=== PATIENT | female | born 1985 | race Caucasian/White ===

== ENCOUNTER 2016-04-29 20:50 | Emergency (ER) | payer OTHER ==
[~2016-04-29] VITALS: Ht 160 cm; Wt 68.0 kg
[2016-04-29 21:14] VITALS: BP 109/63
[2016-04-29] MEDS ORDERED: PROAIR RESPICL90 MCG IH (21:57)
[2016-04-29] MEDS ORDERED: PRED50TA PO (21:57)
[2016-04-29] MEDS ORDERED: AZIT250T PO (21:57)
[2016-04-29] MEDS ORDERED: BENZ100C PO (21:57)
--- NOTE | 2016-04-29 21:58 | PHYS DOC ---
Past Medical History Past Medical History: No Pertinent History Past Surgical History: Cholecystectomy, , Other Additional Past Surgical Histo: TIBIA SURGERY AND GRAFT Alcohol Use: None Drug Use: None Adult General Chief Complaint Chief Complaint: COUGH HPI HPI Patient is a 31 year old female who presents with a productive cough for 1 week. Patient states this symptoms are consistent with the last time she had walking pneumonia and bronchitis. Patient denies any fever but states she has chills. Denies any history of smoking. Review of Systems Review of Systems Constitutional: chills [] Eyes: Denies change in visual acuity, redness, or eye pain [] HENT: Denies nasal congestion or sore throat [] Respiratory: cough Cardiovascular: No additional information not addressed in HPI [] GI: Denies abdominal pain, nausea, vomiting, bloody stools or diarrhea [] : Denies dysuria or hematuria [] Musculoskeletal: Denies back pain or joint pain [] Integument: Denies rash or skin lesions [] Neurologic: Denies headache, focal weakness or sensory changes [] Endocrine: Denies polyuria or polydipsia [] Allergies Allergies Allergies Coded Allergies Type Severity Reaction Last Updated Verified Penicillins Allergy Unknown 04/30/14 Yes Physical Exam Physical Exam Constitutional: Well developed, well nourished, no acute distress, non-toxic appearance. [] HENT: Normocephalic, atraumatic, bilateral external ears normal, oropharynx moist, no oral exudates, nose normal. [] Eyes: PERRLA, EOMI, conjunctiva normal, no discharge. [] Neck: Normal range of motion, no tenderness, supple, no stridor. [] Cardiovascular:Heart rate regular rhythm, no murmur [] Lungs & Thorax: Bilateral breath sounds clear to auscultation [] Abdomen: Bowel sounds normal, soft, no tenderness, no masses, no pulsatile masses. [] Skin: Warm, dry, no erythema, no rash. [] Back: No tenderness, no CVA tenderness. [] Extremities: No tenderness, no cyanosis, no clubbing, ROM intact, no edema. [] Neurologic: Alert and oriented X 3, normal motor function, normal sensory function, no focal deficits noted. [] Psychologic: Affect normal, judgement normal, mood normal. [] Current Patient Data Vital Signs Vital Signs Date Time Temp Pulse Resp B/P Pulse Ox O2 Delivery O2 Flow Rate FiO2 04/29/16 21:14 98.4 81 16 100 Room Air 98.4 EKG EKG [] Radiology/Procedures Radiology/Procedures [] Course & Med Decision Making Course & Med Decision Making Pertinent Labs and Imaging studies reviewed. (See chart for details) Patient is in the ED with symptoms consistent of bronchitis. Discharged with albuterol inhaler prednisone for 5 days Zurdo Sims and Candida. Instructed to follow-up with PCP in one week. Provided return precautions and discharged in stable condition. Dragon Disclaimer Dragon Disclaimer This electronic medical record was generated, in whole or in part, using a voice recognition dictation system. Departure Departure Impression: Primary Impression: Acute bronchitis Disposition: HOME, SELF-CARE Condition: STABLE Referrals: NO PCP (PCP) Follow-up with your doctor in one week Patient Instructions: Acute Bronchitis Additional Instructions: You were seen for acute bronchitis, take the prescribed medicines as ordered, complete your antibiotics. Follow-up with your doctor in one week, come back to the ED if symptoms worsen. Scripts Azithromycin (Zithromax)250 Mg Tablet1 Pkg PO UD #1 PKG Prov:RAFAEL CAMPBELL APRN 04/29/16 Benzonatate (Tessalon Perle)100 Mg Capsule1 Cap PO TID #30 CAP Prov:RAFAEL CAMPBELL APRN 04/29/16 Prednisone 50 Mg Tablet1 Tab PO DAILY #5 TAB Prov:RAFAEL CAMPBELL APRN 04/29/16 Albuterol Sulfate (Proair Respiclick)90 Mcg Aer.pow.ba1 Puff IH PRN Q6HRS PRN SHORTNESS OF BREATH #1 INHALER Prov:RAFAEL CAMPBELL APRN 04/29/16 Problem Qualifiers Primary Impression: Acute bronchitis Bronchitis organism: unspecified organism Qualified Code: J20.9 - Acute bronchitis, unspecified RAFAEL CAMPBELL APRN Apr 29, 2016 21:57
== END 2016-04-29 22:10 | disposition home or self-care (01) ==
LOC: ER 20:52
DX: J20.9 Acute bronchitis, unspecified (principal)
CPT/HCPCS: 99283

== ENCOUNTER 2016-05-03 20:16 | Emergency (ER) | payer OTHER ==
[~2016-05-03] VITALS: Ht 160 cm; Wt 68.0 kg
[~2016-05-03 20:16] MED LIST: AZIT250T PO; BENZ100C PO; PRED50TA PO; PROAIR RESPICL90 MCG IH
[2016-05-03 20:20] VITALS: BP 112/76
[2016-05-03] MEDS ORDERED: IBUP-1007 PO (22:33)
--- NOTE | 2016-05-03 22:33 | PHYS DOC ---
Past Medical History Past Medical History: No Pertinent History Past Surgical History: Cholecystectomy, , Other Additional Past Surgical Histo: TIBIA SURGERY AND GRAFT Additional Information: Nonsmoker Alcohol Use: None Drug Use: None Adult General Chief Complaint Chief Complaint: FOOT INJURY PAIN HPI HPI Patient is a 31 year old female who presents with left foot pain starting 1830 tonight. The patient twisted her foot while getting up from a chair. She has been ambulatory since the injury. She reports decreased dorsiflexion with normal plantar flexion of the foot. She does not have a PCP. Review of Systems Review of Systems Constitutional: Denies fever or chills. [] Musculoskeletal: Denies back pain or joint pain. Reports left foot pain. Integument: Denies rash or skin lesions. [] Neurologic: Denies focal weakness or sensory changes. [] Allergies Allergies Allergies Coded Allergies Type Severity Reaction Last Updated Verified Penicillins Allergy Unknown 04/30/14 Yes Physical Exam Physical Exam Constitutional: Well developed, well nourished, no acute distress, non-toxic appearance. [] HENT: Normocephalic, atraumatic, oropharynx moist. [] Eyes: PERRLA, EOMI, conjunctiva normal, no discharge. [] Skin: Warm, dry, no erythema, no rash. There is no laceration, abrasion, ecchymosis, or other external signs of trauma. Extremities: Left midfoot tenderness, ROM intact, no edema. 2+ pedal pulses. Less than 2 second capillary refill. Light touch sensation intact distally. Neurologic: Alert and oriented X 3, normal motor function, normal sensory function, no focal deficits noted. [] Psychologic: Affect normal, judgement normal, mood normal. [] Current Patient Data Vital Signs Vital Signs Date Time Temp Pulse Resp B/P Pulse Ox O2 Delivery O2 Flow Rate FiO2 05/03/16 20:20 97.9 70 20 98 Room Air 97.9 EKG EKG [] Radiology/Procedures Radiology/Procedures Three-view x-ray of the left foot reviewed and interpreted by myself with Dr. Young. There are no acute fractures or dislocations. Course & Med Decision Making Course & Med Decision Making Pertinent Labs and Imaging studies reviewed. (See chart for details) Patient was provided with an Blaine wrap and a postop shoe prior discharge. She is provided with a prescription for ibuprofen 600 mg. She is given contact information for orthopedics for follow-up. Return precautions were discussed. She verbalizes understanding and agrees with plan. Dragon Disclaimer Dragon Disclaimer This electronic medical record was generated, in whole or in part, using a voice recognition dictation system. Departure Departure Impression: Primary Impression: Foot sprain Disposition: HOME, SELF-CARE Condition: STABLE Referrals: PATTI CHARLTON MD Patient Instructions: Foot Sprain-Brief Additional Instructions: Your x-ray did not show any broken bones or dislocations. Please wear the provided Blaine wrap and walking shoe to help with pain and swelling. Please take the provided medication as directed. Please follow-up with the orthopedic doctor listed below if your pain continues. Return to the emergency department if you have any new or concerning symptoms. Scripts Ibuprofen 600 Mg [id number] Mg PO PRN Q6HRS PRN INFLAMMATION #20 TAB Prov:JIMY SHAVER 05/03/16 Problem Qualifiers Primary Impression: Foot sprain Encounter type: initial encounter Laterality: left Qualified Code: S93.602A - Unspecified sprain of left foot, initial encounter JIMY SHAVER May 03, 2016 22:33
--- NOTE | 2016-05-04 08:11 | RAD ---
Indication: Twisted foot, pain dorsally. Technique: 3 views of the left foot are submitted for review. No comparison is available. Findings: There is no fracture or dislocation. There is no soft tissue swelling. Impression: Negative for fracture.
== END 2016-05-03 22:40 | disposition home or self-care (01) ==
LOC: ER 20:16
DX: S93.602A Unspecified sprain of left foot, initial encounter (principal); Z88.0 Allergy status to penicillin; X50.9XXA Other and unspecified overexertion or strenuous movements or postures, initial encounter; Y93.89 Activity, other specified; Y99.8 Other external cause status; Y92.89 Other specified places as the place of occurrence of the external cause
CPT/HCPCS: 73630; 99285-25

== ENCOUNTER 2017-02-05 14:35 | Emergency (ER) | payer OTHER ==
[~2017-02-05] VITALS: Ht 160 cm; Wt 68.0 kg
[~2017-02-05 14:35] MED LIST changes: +CLIN150C14 PO; +IBUP-1007 PO; +TRAM-48 PO
[2017-02-05 15:51] VITALS: BP 105/55
--- NOTE | 2017-02-05 15:52 | PHYS DOC ---
Past Medical History Past Medical History: No Pertinent History Past Surgical History: Cholecystectomy, , Other Additional Past Surgical Histo: TIBIA SURGERY AND GRAFT Alcohol Use: None Drug Use: None Adult General Chief Complaint Chief Complaint: NAUSEA/VOMITING/DIARRHA HPI HPI Patient is a 31 year old female who presents with nausea vomiting and diarrhea that began yesterday after eating at [email or web address]. Patient is in the ED with her daughter with the same complaint. Patient denies any fever or hematemesis. Denies any chance she is . She is also complaining of abdominal cramping. Review of Systems Review of Systems Constitutional: Denies fever or chills [] Eyes: Denies change in visual acuity, redness, or eye pain [] HENT: Denies nasal congestion or sore throat [] Respiratory: Denies cough or shortness of breath [] Cardiovascular: No additional information not addressed in HPI [] GI: Reports abdominal cramping with nausea vomiting and diarrhea : Denies dysuria or hematuria [] Musculoskeletal: Denies back pain or joint pain [] Integument: Denies rash or skin lesions [] Neurologic: Denies headache, focal weakness or sensory changes [] All other systems were reviewed and found to be within normal limits, except as documented in this note. Current Medications Current Medications Current Medications Medications (Trade) Dose Ordered Sig/Rafita Start Time Stop Time Status Last Admin Dose Admin Dicyclomine HCl (Bentyl) 20 mg 1X ONCE 02/05/17 16:00 02/05/17 16:01 UNV Ondansetron HCl (Zofran Odt) 4 mg 1X ONCE 02/05/17 16:00 02/05/17 16:01 Allergies Allergies Allergies Coded Allergies Type Severity Reaction Last Updated Verified Penicillins Allergy Intermediate 02/05/17 Yes Physical Exam Physical Exam Constitutional: Well developed, well nourished, no acute distress, non-toxic appearance. [] HENT: Normocephalic, atraumatic, bilateral external ears normal, oropharynx moist, no oral exudates, nose normal. [] Eyes: PERRLA, EOMI, conjunctiva normal, no discharge. [] Neck: Normal range of motion, no tenderness, supple, no stridor. [] Cardiovascular:Heart rate regular rhythm, no murmur [] Lungs & Thorax: Bilateral breath sounds clear to auscultation [] Abdomen: Bowel sounds normal, soft, no tenderness, no masses, no pulsatile masses. [] Skin: Warm, dry, no erythema, no rash. [] Back: No tenderness, no CVA tenderness. [] Extremities: No tenderness, no cyanosis, no clubbing, ROM intact, no edema. [] Neurologic: Alert and oriented X 3, normal motor function, normal sensory function, no focal deficits noted. [] Psychologic: Affect normal, judgement normal, mood normal. [] Current Patient Data Vital Signs Vital Signs Date Time Temp Pulse Resp B/P (MAP) Pulse Ox O2 Delivery O2 Flow Rate FiO2 02/05/17 15:51 98.0 95 18 100 Room Air 98.0 EKG EKG [] Radiology/Procedures Radiology/Procedures [] Course & Med Decision Making Course & Med Decision Making Pertinent Labs and Imaging studies reviewed. (See chart for details) Patient is in the ED with symptoms of viral illness or food poisoning including abdominal cramping nausea vomiting and diarrhea after eating at [employer] yesterday. Daughter has same symptoms. Will be discharged with Zofran and instructed to push fluids and maintain good hand hygiene. She was also discharged with dicyclomine. Tylenol/Motrin for pain or fever. Follow-up with her own doctor in the course of this week or next week. Dragon Disclaimer Dragon Disclaimer This electronic medical record was generated, in whole or in part, using a voice recognition dictation system. Departure Departure Impression: Primary Impression: Nausea & vomiting Additional Impression: Diarrhea Disposition: 01 HOME, SELF-CARE Condition: STABLE Referrals: UNKNOWN PCP NAME (PCP) MIESHA CUNNINGHAM MD follow up with your in 1 week Patient Instructions: Diarrhea, Nausea and Vomiting, [id number] Additional Instructions: You were seen with symptoms consistent of a viral illness or food poisoning. Push fluids. Maintain good hand hygiene. Follow-up with your doctor in the course of this week or next week. This symptoms typically run their own course. Scripts Dicyclomine Hcl (DICYCLOMINE HCL) 20 Mg Tablet 1 TAB PO TID, #20 TAB 0 Refills Prov: MUTUNGARAFAEL SILVICULTURE TEACHER 02/05/17 Ondansetron (ZOFRAN ODT) 4 Mg Tab.rapdis 1 TAB SL Q8HRS, #15 TAB Prov: MUTUNGARAFAEL SILVICULTURE TEACHER 02/05/17 Problem Qualifiers Primary Impression: Nausea & vomiting Vomiting type: unspecified Vomiting Intractability: non-intractable Qualified Codes: R11.2 - Nausea with vomiting, unspecified Additional Impression: Diarrhea Diarrhea type: unspecified type Qualified Codes: R19.7 - Diarrhea, unspecified MUTUNGA,RAFAEL SILVICULTURE TEACHER Feb 05, 2017 15:52
[2017-02-05] MEDS ORDERED: ONDA4TAB10 SL (16:00)
[2017-02-05] MEDS ORDERED: DICY20TA3 PO (16:00)
[2017-02-05] MEDS ORDERED: DICYCLOMINE HCL 10 MG CAPSULE PO ONE (16:00)
[2017-02-05] MEDS ORDERED: ONDANSETRON ODT 4 MG TAB.RAPDIS. PO ONE (16:00)
== END 2017-02-05 16:14 | disposition home or self-care (01) ==
LOC: ER 14:35
DX: R11.2 Nausea with vomiting, unspecified (principal); R19.7 Diarrhea, unspecified; R10.9 Unspecified abdominal pain; Z90.49 Acquired absence of other specified parts of digestive tract; Z98.890 Other specified postprocedural states; Z88.0 Allergy status to penicillin
CPT/HCPCS: 99283; Q0162

== ENCOUNTER 2017-02-08 23:09 | Emergency (ER) | payer OTHER ==
[~2017-02-08] VITALS: Ht 160 cm; Wt 68.0 kg
[~2017-02-08 23:09] MED LIST changes: +DICY20TA3 PO; +ONDA4TAB10 SL
[2017-02-08 23:32] VITALS: BP 110/62
[2017-02-09] MEDS ORDERED: CLIN150C14 PO (00:10)
[2017-02-09] MEDS ORDERED: ACET-704 PO (00:10)
--- NOTE | 2017-02-09 00:10 | PHYS DOC ---
Past Medical History Past Medical History: No Pertinent History Past Surgical History: Cholecystectomy, Additional Past Surgical Histo: SKIN GRAFTS Alcohol Use: None Drug Use: None Adult General Chief Complaint Chief Complaint: FACE PROBLEM HPI HPI Patient is a 31 year old female presents to the emergency department stating that she has been having nausea and vomiting over the weekend which she was seen here was placed on Bentyl and some medications. Patient states she developed swelling in the right side of her cheek area along the sinus areas and down and to her lower jaw. Patient states as the day is progresses become increasingly swollen. Patient states she has been painful in which she has taken 1000 mg of ibuprofen. She denies any GI upset at this time. Patient states that it did not really help with any of the pain or discomfort. She denies having any fever however states that she's been having some chills. Patient states she does not have a dentist at this time. She denies any nasal congestion sore throat or cough. Patient states her last menstrual period was approximately 2 weeks ago denies any chances of . Review of Systems Review of Systems Constitutional: Denies fever complaint of chills Eyes: Denies change in visual acuity, redness, or eye pain [] HENT: Denies nasal congestion or sore throat. Complaining of swelling on the right side of her cheek and jaw area. Respiratory: Denies cough or shortness of breath [] Cardiovascular: No additional information not addressed in HPI [] GI: Denies abdominal pain, nausea, vomiting, bloody stools or diarrhea [] : Denies dysuria or hematuria [] Musculoskeletal: Denies back pain or joint pain [] Integument: Denies rash or skin lesions [] Neurologic: Denies headache, focal weakness or sensory changes [] Endocrine: Denies polyuria or polydipsia [] All other systems were reviewed and found to be within normal limits, except as documented in this note. Allergies Allergies Allergies Coded Allergies Type Severity Reaction Last Updated Verified Penicillins Allergy Intermediate 02/05/17 Yes Physical Exam Physical Exam Constitutional: Well developed, well nourished, no acute distress, non-toxic appearance. [] HENT: Normocephalic, atraumatic, bilateral external ears normal, oropharynx moist, no oral exudates, nose normal. Bilateral tympanic membranes appear to be normal. Right maxillary sinus swollen and very tender. No tenderness noted along the teeth area. Throat appears to be without erythema is drainage or discharge no exudate noted. No anterior cervical adenopathy noted Eyes: PERRLA, EOMI, conjunctiva normal, no discharge. [] Neck: Normal range of motion, no tenderness, supple, no stridor. [] Cardiovascular:Heart rate regular rhythm, no murmur [] Lungs & Thorax: Bilateral breath sounds clear to auscultation [] Skin: Warm, dry, no erythema, no rash. [] Extremities: No tenderness, no cyanosis, no clubbing, ROM intact, no edema. [] Neurologic: Alert and oriented X 3, normal motor function, normal sensory function, no focal deficits noted. [] Psychologic: Affect normal, judgement normal, mood normal. [] Current Patient Data Vital Signs Vital Signs Date Time Temp Pulse Resp B/P (MAP) Pulse Ox O2 Delivery O2 Flow Rate FiO2 02/08/17 23:32 98.1 76 22 99 Room Air 98.1 EKG EKG [] Radiology/Procedures Radiology/Procedures [] Course & Med Decision Making Course & Med Decision Making Pertinent Labs and Imaging studies reviewed. (See chart for details) Patient will be placed on clindamycin 450 mg 3 times a day for the next 10 days. I feel that this is a sinusitis infection more so than a dental issue. However patient has been also encouraged to follow up with a dentist in the first week of February a she will then have dental insurance. Patient will also be provided with Tylenol 3 for severe pain and discomfort. She was instructed that this medication will cause drowsiness do not take any be alert and oriented. She was also instructed that this medication may cause constipation to make sure she eats high fiber diet such as fruits that she also plenty of fluids. Patient was provided with signs and symptoms return back to the emergency department. She was encouraged follow-up to primary care physician in the next 5-7 days. Signs and symptoms to return back to the emergency department provided. All questions and concerns been answered at the patients bedside. She'll be discharged home in stable condition. [] Dragon Disclaimer Dragon Disclaimer This electronic medical record was generated, in whole or in part, using a voice recognition dictation system. Departure Departure Impression: Primary Impression: Acute maxillary sinusitis Disposition: HOME, SELF-CARE Condition: STABLE Referrals: PAULA BARNHART MD (PCP) Patient Instructions: Sinusitis, [id number] Additional Instructions: Activity as tolerated. Medication as prescribed Ibuprofen 800 mg every 8 hours with food stopped taking he developed upset stomach. Tylenol 3 for severe pain and discomfort. This medication will cause drowsiness do not take any be alert and oriented. This medication may also cause constipation make sure he high fiber diet such as water fruits and vegetables and plenty of fluids. Warm moist packs to the right jaw area. Follow-up with your primary care physician in the next 7-10 days. Follow-up with the dentist in the next 10 days. Return back to the emergency department for signs and symptoms of become worse. Scripts Acetaminophen With Codeine (TYLENOL WITH CODEINE #3 TABLET) 1 Each Tablet 1 TAB PO PRN Q6HRS Y for PAIN, #15 TAB Prov: GUZMAN NEGRO APRN 02/09/17 Clindamycin Hcl (CLINDAMYCIN HCL) 150 Mg Capsule 3 CAP PO TID for 10 Days, CAP Prov: GUZMAN NEGRO APRN 02/09/17 Problem Qualifiers Primary Impression: Acute maxillary sinusitis Recurrence: not specified as recurrent Qualified Codes: J01.00 - Acute maxillary sinusitis, unspecified GUZMAN NEGRO APRN Feb 09, 2017 00:10 DOMONIQUE WRIGHT MD Feb 09, 2017 00:52
== END 2017-02-09 00:17 | disposition home or self-care (01) ==
LOC: ER 23:09
DX: J01.00 Acute maxillary sinusitis, unspecified (principal); Z88.0 Allergy status to penicillin
CPT/HCPCS: 99283

== ENCOUNTER 2017-02-09 03:02 | Emergency (ER) | payer OTHER ==
[~2017-02-09] VITALS: Ht 160 cm; Wt 74.8 kg
[~2017-02-09 03:02] MED LIST changes: +ACET-704 PO
--- NOTE | 2017-02-09 04:11 | PHYS DOC ---
Past Medical History Past Medical History: No Pertinent History Additional Past Medical Histor: DENTAL ABCESS/SINUS INFECT Past Surgical History: Cholecystectomy, Additional Past Surgical Histo: SKIN GRAFTS Alcohol Use: None Drug Use: None Adult General Chief Complaint Chief Complaint: ABDOMINAL PAIN HPI HPI Patient is a 31 year old female that was seen earlier today for dental infection. prescribed T3. took one and has had epigastric pain since. she hasn 't taken them before. she hasn't taken abx yet. Review of Systems Review of Systems Constitutional: Denies fever or chills [] Eyes: Denies change in visual acuity, redness, or eye pain [] HENT: Denies nasal congestion or sore throat [] Respiratory: Denies cough or shortness of breath [] Cardiovascular: No additional information not addressed in HPI [] GI: + abdominal pain, no nausea, vomiting, bloody stools or diarrhea [] : Denies dysuria or hematuria [] Musculoskeletal: Denies back pain or joint pain [] Integument: Denies rash or skin lesions [] Neurologic: Denies headache, focal weakness or sensory changes [] Endocrine: Denies polyuria or polydipsia [] All other systems were reviewed and found to be within normal limits, except as documented in this note. Current Medications Current Medications Current Medications Medications (Trade) Dose Ordered Sig/Raftia Start Time Stop Time Status Last Admin Dose Admin Diphenhydramine HCl (Benadryl) 25 mg 1X ONCE 02/09/17 04:15 02/09/17 04:16 UNV Multi-Ingredient Mouthwash/Gargle (Gi Cocktail Single Dose) 15 ml 1X ONCE 02/09/17 04:15 02/09/17 04:16 UNV Allergies Allergies Allergies Coded Allergies Type Severity Reaction Last Updated Verified Penicillins Allergy Intermediate 02/05/17 Yes Physical Exam Physical Exam Constitutional: Well developed, well nourished, no acute distress, non-toxic appearance. [] HENT: Normocephalic, atraumatic, bilateral external ears normal, oropharynx moist,right facial swelling, gingival swelling, no abscess seen. nose normal. [] Eyes: PERRLA, EOMI, conjunctiva normal, no discharge. [] Neck: Normal range of motion, no tenderness, supple, no stridor. [] Cardiovascular:Heart rate regular rhythm, no murmur [] Lungs & Thorax: Bilateral breath sounds clear to auscultation [] Abdomen: Bowel sounds normal, soft, no tenderness, no masses, no pulsatile masses. [] Skin: Warm, dry, no erythema, no rash. [] Back: No tenderness, no CVA tenderness. [] Extremities: No tenderness, no cyanosis, no clubbing, ROM intact, no edema. [] Neurologic: Alert and oriented X 3, normal motor function, normal sensory function, no focal deficits noted. [] Psychologic: Affect normal, judgement normal, mood normal. [] Current Patient Data Vital Signs Vital Signs Date Time Temp Pulse Resp B/P (MAP) Pulse Ox O2 Delivery O2 Flow Rate FiO2 02/09/17 03:14 97.6 79 20 115/59 (77) 99 97.6 EKG EKG [] Radiology/Procedures Radiology/Procedures [] Course & Med Decision Making Course & Med Decision Making Pertinent Labs and Imaging studies reviewed. (See chart for details) will stop T3 and start hydrocodone. she has abx. told her to eat with hydrocodone but try to rely on ibuprofen currently sx have improved. will give benadryl here to help sleep and gi cocktail for epigastric irritation [] Dragon Disclaimer Dragon Disclaimer This electronic medical record was generated, in whole or in part, using a voice recognition dictation system. Departure Departure Impression: Primary Impression: Medication reaction Disposition: 01 HOME, SELF-CARE Condition: GOOD Referrals: PAULA BARNHART MD (PCP) Patient Instructions: Dental Caries Additional Instructions: stop tylenol with codeine and start hydrocodone and ibuprofen. ice to face. eat with hydrocodone. return if symptoms worsen. DOMONIQUE WRIGHT MD Feb 09, 2017 04:11
[2017-02-09] MEDS ORDERED: LIDO:MAALOX:DONNATAL 1:1:1 15 ML SINGLE DOSE SWSW ONE (04:30)
[2017-02-09] MEDS ORDERED: diphenhydrAMINE HCL 25 MG CAPSULE PO ONE (04:30)
[2017-02-09 05:33] VITALS: BP 96/50
== END 2017-02-09 05:27 | disposition home or self-care (01) ==
LOC: ER 03:02
DX: R10.13 Epigastric pain (principal); T39.1X5A Adverse effect of 4-Aminophenol derivatives, initial encounter; Z90.49 Acquired absence of other specified parts of digestive tract; Z88.0 Allergy status to penicillin; Y92.89 Other specified places as the place of occurrence of the external cause
CPT/HCPCS: 99283; Q0163

== ENCOUNTER 2021-04-13 11:17 | Emergency (ER) | payer OTHER ==
[~2021-04-13] VITALS: Ht 160 cm; Wt 88.6 kg
[~2021-04-13 11:17] MED LIST changes: -CLIN150C14 PO; +CLIN150C16 PO; +DICY20TA PO; -DICY20TA3 PO
[2021-04-13] MEDS ORDERED: ONDANSETRON PF 4 MG/2 ML VIAL. IVP ONE (13:30)
[2021-04-13 13:33] LABS: BILIRUBIN,URINE NEGATIVE (NEG); CLARITY,URINE CLEAR; COLOR,URINE YELLOW; NITRITE,URINE NEGATIVE (NEG); PROTEIN,URINE NEGATIVE (NEG-TRACE); UROBILINOGEN,URINE 0.2 mg/dL (0.2 mg/dL)
[2021-04-13 13:43] LABS: BASO % 1 % (0-3); EOS % 1 % (0-3); HEMATOCRIT 38.1 % (36.0-47.0); HEMOGLOBIN 12.2 g/dL (12.0-15.5); LYMPH # 1.5 x10^3/uL (1.0-4.8); LYMPH % 34 % (24-48); MEAN CORPUSCULAR HEMOGLOBIN 28 pg (25-35); MEAN CORPUSCULAR HGB CONC 32 g/dL (31-37); MEAN CORPUSCULAR VOLUME 88 fL (79-100); MONO # 0.2 x10^3/uL (0.0-1.1); MONO % 6 % (0-9); NEUT # 2.5 x10^3/uL (1.8-7.7); NEUT % 58 % (31-73); PLATELET COUNT 142 x10^3/uL (140-400); RED BLOOD COUNT 4.31 x10^6/uL (3.50-5.40); RED CELL DISTRIBUTION WIDTH 13.8 % (11.5-14.5); WHITE BLOOD COUNT 4.3 x10^3/uL (4.0-11.0)
[2021-04-13 13:52] LABS: BACTERIA,URINE 0 /HPF (0-FEW); RBC,URINE 0 /HPF (0-2); WBC,URINE OCC /HPF (0-4)
--- NOTE | 2021-04-13 13:54 | PHYS DOC ---
Past Medical History Past Medical History: Sinusitis Additional Past Medical Histor: DENTAL ABCESS (KHADRA AGUAYO) Past Surgical History: Cholecystectomy, , Tubal ligation Additional Past Surgical Histo: SKIN GRAFTS (KHADRA AGUAYO) Smoking Status: Never Smoker Alcohol Use: None Drug Use: None (KHADRA AGUAYO) General Adult EDM: Chief Complaint: ABDOMINAL PAIN HPI: HPI: Patient is a 36 year old female who presents with 1 week history of nausea that is worsened since onset. Patient visited her primary care doctor this morning, who elicited right lower quadrant tenderness on palpation. Patient was given the option of outpatient testing or presenting to the emergency department to have testing performed right away. Patient elected to present to the ER. She denies abdominal pain at rest, but states that on palpation of the right lower quadrant or standing, her pain is elicited. At times, her nausea is relieved by eating. Patient states that after her food is "completely digested," the nausea returns. Patient denies emesis, constipation, diarrhea. Patient states she is unable to become and has been COVID tested multiple times recently. (KHADRA AGUAYO) Review of Systems: Review of Systems: Constitutional: Denies fever, chills or generalized weakness Eyes: Denies change in visual acuity, visual field deficits or discharge HENT: Denies ear pain, nasal congestion or sore throat Respiratory: Denies cough or shortness of breath Cardiovascular: Denies chest pain, palpitations or edema GI: See HPI : Denies dysuria or hematuria Musculoskeletal: Denies back pain or joint pain Integument: Denies rash or other skin lesion Neurologic: Denies headache, focal weakness or sensory changes (KHADRA AGUAYO) Heart Score: C/O Chest Pain: No (KHADRA AGUAYO) Current Medications: Current Medications Medications (Trade) Dose Ordered Sig/Rafita Start Time Stop Time Status Last Admin Dose Admin Ondansetron HCl (Zofran) 4 mg 1X ONCE 04/13/21 13:30 04/13/21 13:31 DC (KHADRA AGUAYO) Allergies: Allergies: Allergies Coded Allergies Type Severity Reaction Last Updated Verified Penicillins Allergy Intermediate 02/05/17 Yes (KHADRA AGUAYO) Physical Exam: PE: Constitutional: Well developed, well nourished, no acute distress, non-toxic appearance. HENT: Normocephalic, atraumatic, bilateral external ears normal, nose normal. Eyes: EOMI, conjunctiva normal, no discharge. Neck: Normal range of motion, no stridor. Abdomen: Bowel sounds normal, soft, RLQ point tenderness, no rebound/guarding, negative Rovsing sign, no masses, no pulsatile masses. Skin: Warm, dry, no erythema, no rash. Back: No tenderness, no CVA tenderness. Extremities: No tenderness, no cyanosis, no clubbing, ROM intact, no edema. Neurologic: Alert and oriented x4, steady and symmetrical upright gait, no focal deficits noted. (KHADRA AGUAYO) Current Patient Data: Labs: Laboratory Tests Test 04/13/21 11:40 04/13/21 11:59 04/13/21 13:25 04/13/21 14:02 Urine Collection Type Unknown Urine Color Yellow Urine Clarity Clear Urine pH 6.0 (<5.0-8.0) Urine Specific [place] 1.020 (1.000-1.030) Urine Protein Negative mg/dL (NEG-TRACE) Urine Glucose (UA) Negative mg/dL (NEG) Urine Ketones (Stick) Negative mg/dL (NEG) Urine Blood Moderate (NEG) Urine Nitrite Negative (NEG) Urine Bilirubin Negative (NEG) Urine Urobilinogen Dipstick 0.2 mg/dL (0.2 mg/dL) Urine Leukocyte Esterase Negative (NEG) Urine RBC 0 /HPF (0-2) Urine WBC Occ /HPF (0-4) Urine Squamous Epithelial Cells Few /LPF Urine Bacteria 0 /HPF (0-FEW) Bedside Urine HCG, Qualitative Hcg negative (Negative) White Blood Count 4.3 x10^3/uL (4.0-11.0) Red Blood Count 4.31 x10^6/uL (3.50-5.40) Hemoglobin 12.2 g/dL (12.0-15.5) Hematocrit 38.1 % (36.0-47.0) Mean Corpuscular Volume 88 fL (79-100) Mean Corpuscular Hemoglobin 28 pg (25-35) Mean Corpuscular Hemoglobin Concent 32 g/dL (31-37) Red Cell Distribution Width 13.8 % (11.5-14.5) Platelet Count 142 x10^3/uL (140-400) Neutrophils (%) (Auto) 58 % (31-73) Lymphocytes (%) (Auto) 34 % (24-48) Monocytes (%) (Auto) 6 % (0-9) Eosinophils (%) (Auto) 1 % (0-3) Basophils (%) (Auto) 1 % (0-3) Neutrophils # (Auto) 2.5 x10^3/uL (1.8-7.7) Lymphocytes # (Auto) 1.5 x10^3/uL (1.0-4.8) Monocytes # (Auto) 0.2 x10^3/uL (0.0-1.1) Eosinophils # (Auto) 0.0 x10^3/uL (0.0-0.7) Basophils # (Auto) 0.0 x10^3/uL (0.0-0.2) Sodium Level 136 mmol/L (136-145) Potassium Level 3.6 mmol/L (3.5-5.1) Chloride Level 103 mmol/L (98-107) Carbon Dioxide Level 26 mmol/L (21-32) Anion Gap 7 (6-14) Blood Urea Nitrogen 10 mg/dL (7-20) Creatinine 0.7 mg/dL (0.6-1.0) Estimated GFR (Cockcroft-Gault) 95.8 BUN/Creatinine Ratio 14 (6-20) Glucose Level 87 mg/dL (70-99) Calcium Level 8.7 mg/dL (8.5-10.1) Total Bilirubin 0.5 mg/dL (0.2-1.0) Aspartate Amino Transf (AST/SGOT) 11 U/L (15-37) Alanine Aminotransferase (ALT/SGPT) 14 U/L (14-59) Alkaline Phosphatase 72 U/L (46-116) Total Protein 7.7 g/dL (6.4-8.2) Albumin 3.8 g/dL (3.4-5.0) Albumin/Globulin Ratio 1.0 (1.0-1.7) Lipase 76 U/L (73-393) Vital Signs: Vital Signs Date Time Temp Pulse Resp B/P (MAP) Pulse Ox O2 Delivery O2 Flow Rate FiO2 04/13/21 11:39 98.2 76 16 135/60 (85) 97 Room Air 98.2 (KHADRA AGUAYO) Radiology/Procedures: Radiology/Procedures: PROCEDURE: CT ABD PELV W/ IV CONTRST ONLY EXAMINATION: CT ABDOMEN+PELVIS W CLINICAL HISTORY: Nausea, RLQ tender. TECHNIQUE: CT of the abdomen and pelvis was performed using standard technique, scanning from just above the dome of the diaphragm to the symphysis pubis following administration of intravenous contrast. CT Dose Reduction Employed: One or more of the following individualized dose reduction techniques were utilized for this examination: 1. Automated exposure control 2. Adjustment of the mA and/or kV according to patient size 3. Use of iterative reconstruction technique. COMPARISON: None FINDINGS: Visualized heart and lungs unremarkable. Cholecystectomy. Liver, pancreas, spleen, adrenal glands, and kidneys unremarkable. Minimally filled urinary bladder. Uterus and ovaries unremarkable on limited evaluation. No bowel dilation or definite wall thickening. Appendix within normal limits. No abdominal aortic or iliac artery aneurysm. No evidence of acute osseous abnormality. IMPRESSION: No evidence of acute abdominopelvic abnormality. Electronically signed by: Richard Dudley DO (04/13/2021 2:49 PM) [id number] (KHADRA AGUAYO) Course & Med Decision Making: Course & Med Decision Making Pertinent Labs and Imaging studies reviewed. (See chart for details) Patient is a 36-year-old female with nausea presenting from PCPs office with concern for appendicitis. Patient does have right lower quadrant tenderness on palpation. Work-up today will include labs, CT abdomen pelvis with IV contrast, urinalysis. Work-up today is largely unremarkable. Provided contact information for GI specialist for further evaluation. Discussed possibility of upper GI ulcer, which will need further imaging that is not performed here in the emergency department. Return precautions were provided. Patient understands and is agreeable to discharge plan. (KHADRA AGUAYO) Dragon Disclaimer: Dragon Disclaimer: This electronic medical record was generated, in whole or in part, using a voice recognition dictation system. (KHADRA AGUAYO) Departure Departure Impression: Primary Impression: Nausea without vomiting Disposition: HOME / SELF CARE / HOMELESS Condition: STABLE Referrals: SINAN SUBRAMANIAN PA-C (PCP) MIESHA CUNNINGHAM MD Patient Instructions: Gastritis, Adult, [id number], Nausea, Adult, [id number] Additional Instructions: EMERGENCY DEPARTMENT GENERAL DISCHARGE INSTRUCTIONS Thank you for coming to [facility] Emergency Department (ED) today and trusting us with you care. We trust that you had a positive experience in our Emergency Department. If you wish to speak to the department management, you may call the director at . YOUR FOLLOW UP INSTRUCTIONS ARE FOLLOWS: 1. Follow up with your primary care doctor. If you do not have a primary doctor, please ask for a resource list of physicians or clinics that may be able to assist you with follow up care. 2. The emergency provider has interpreted your imaging studies, if any were ordered. The radiology executive relations specialist also reviewed them. If there is a change in the findings, you will be notified in 48 hours when at all possible. 3. If a lab test or culture has been done, your results will be reviewed and you will be notified if you need a change in treatment. 4. Follow instructions verbalized to you and refer to the printouts if needed. ADDITIONAL INSTRUCTIONS AND INFORMATION: 1. Your care today has been supervised by a physician who is specially trained in emergency care. Many problems require more than one evaluation for a complete diagnosis and treatment. We recommend that you schedule your follow up appointment as recommended to ensure complete treatment of you illness or injury. If you are unable to obtain follow up care and continue to have a problem, or if your condition worsens, we recommend that you return to the ED. 2. We are not able to safely determine your condition over the phone nor are we able to give sound medical advice over the phone. For these safety reasons, if you call for medical advice we will ask you to come to the ED for further evaluation. 3. If you have any questions regarding these discharge instructions please call the ED at . SAFETY INFORMATION: In the interest of safety, wellness, and injury prevention; we encourage you to wear your seat belt, if you smoke; quite smoking, and we encourage family to use a protective helmet for bicycling and other sporting events that present an increased risk for head injury. IF YOUR SYMPTOMS WORSEN OR NEW SYMPTOMS DEVELOP, OR YOU HAVE CONCERNS ABOUT YOUR CONDITION; OR IF YOUR CONDITION WORSENS WHILE YOU ARE WAITING FOR YOUR FOLLOW UP APPOINTMENT; EITHER CONTACT YOUR PRIMARY CARE DOCTOR, THE PHYSICIAN WHOSE NAME AND NUMBER YOU WERE GIVEN, OR RETURN TO THE ED IMMEDIATELY. Scripts Ondansetron (ONDANSETRON ODT) 4 Mg Tab.rapdis 1 TAB PO PRN Q6-8HRS, #20 TAB Prov: KHADRA AGUAYO 04/13/21 Attending Signature Attending Signature I have reviewed the PA/RECORDS MANAGEMENT ASSOCIATE's note and plan of care. I was available for consultation as needed during the patient's visit in the emergency department. I agree with the clinical impression, plan, and disposition. (LYLY PATEL DO) KHADRA AGUAYO Apr 13, 2021 13:54 LYLY PATEL DO Apr 14, 2021 09:09
[2021-04-13] MEDS ORDERED: IOHEXOL 300 MG/ML 100ML VIAL. IV ONE (14:00)
[2021-04-13 14:19] LABS: CALCIUM 8.7 mg/dL (8.5-10.1); CREATININE 0.7 mg/dL (0.6-1.0); GFR 95.8; POTASSIUM 3.6 mmol/L (3.5-5.1)
[2021-04-13 14:24] LABS: ALBUMIN 3.8 g/dL (3.4-5.0); TOTAL BILIRUBIN 0.5 mg/dL (0.2-1.0); TOTAL PROTEIN 7.7 g/dL (6.4-8.2)
--- NOTE | 2021-04-13 14:51 | RAD ---
EXAMINATION: CT ABDOMEN+PELVIS W CLINICAL HISTORY: Nausea, RLQ tender. TECHNIQUE: CT of the abdomen and pelvis was performed using standard technique, scanning from just ab ove the dome of the diaphragm to the symphysis pubis following administration of intravenous contrast . CT Dose Reduction Employed: One or more of the following individualized dose reduction techniques wer e utilized for this examination: 1. Automated exposure control 2. Adjustment of the mA and/or kV ac cording to patient size 3. Use of iterative reconstruction technique. COMPARISON: None FINDINGS: Visualized heart and lungs unremarkable. Cholecystectomy. Liver, pancreas, spleen, adrenal glands, and kidneys unremarkable. Minimally filled urinary bladder. Uterus and ovaries unremarkable on limited evaluation. No bowel dilation or definite wall thickening. Appendix within normal limits. No abdominal aortic or iliac artery aneurysm. No evidence of acute osseous abnormality. IMPRESSION: No evidence of acute abdominopelvic abnormality. Electronically signed by: Richard Dudley DO (04/13/2021 2:49 PM) [id number]
[2021-04-13] MEDS ORDERED: ONDA4TAB12 PO (15:09)
[2021-04-13 15:40] VITALS: BP 146/66
== END 2021-04-13 15:40 | disposition home or self-care (01) ==
LOC: ER 11:17
DX: R11.0 Nausea (principal); Z88.0 Allergy status to penicillin; Z90.49 Acquired absence of other specified parts of digestive tract; Z98.51 Tubal ligation status
CPT/HCPCS: 36415; 74177; 80053; 81001; 81025; 83690; 85025; 96374; 99285; J2405; Q9967